=== PATIENT | female | born 1990 | race African-American/Black ===

== ENCOUNTER 2016-05-25 13:44 | Emergency (ER) | payer SELFPAY ==
--- NOTE | 2016-05-25 14:35 | EDM.PDOC ---
ED HPI LOWER BACK PAIN/INJURY - General Chief Complaint: Back Pain or Injury Stated Complaint: LOW BACK PAIN Time Seen by Provider: 05/25/16 13:47 Source of Information: Reports: Patient History Limitations: Reports: No limitations - History of Present Illness INITIAL COMMENTS - FREE TEXT/NARRATIVE: History of present illness: [35-year-old female presenting with chronic back pain with exacerbation indicates that OB instructed her to come to ED for evaluation and/or treatment. Patient is in fact 8 weeks . It was discussed with patient the risks of doing an x-ray will as opposed to any benefit for a chronic condition far out weighed the desire to do so. Also indicated to patient that supportive care during this time would most likely be our best option. ] Review of systems: As per history of present illness and below otherwise all systems reviewed and negative. Past medical history: As per history of present illness and as reviewed below otherwise noncontributory. Surgical history: As per history of present illness and as reviewed below otherwise noncontributory. Social history: No reported history of drug or alcohol abuse. Family history: As per history of present illness and as reviewed below otherwise noncontributory. Physical exam: HEENT: Atraumatic, normocephalic, pupils reactive, negative for conjunctival pallor or scleral icterus, mucous membranes moist, throat clear, neck supple, nontender, trachea midline. Lungs: Clear to auscultation, breath sounds equal bilaterally, chest nontender. Heart: S1S2, regular, negative for clicks, rubs, or JVD. Abdomen: Soft, nondistended, nontender. Negative for masses or hepatosplenomegaly. Negative for costovertebral tenderness. Pelvis: Stable nontender. Genitourinary: Deferred. Rectal: Deferred. Extremities: Atraumatic, negative for cords or calf pain. Neurovascular unremarkable. Neuro: Awake, alert, oriented. Cranial nerves II through XII unremarkable. Cerebellum unremarkable. Motor and sensory unremarkable throughout. Exam nonfocal. Global stiffness and verbalized pain with no significant clinical findings. Secondary to early first trimester decision was made to insert patient to take Tylenol rest decompressed back, ice alternating with heat as comfort allows no more than 20 minutes at a time. Followup with primary care provider for potential physical therapy Diagnostics: [] Therapeutics: [] Impression: [ back pain] Plan: [Care such as Tylenol and alternate ice and heat] Definitive disposition and diagnosis as appropriate pending reevaluation and review of above. - Related Data Allergies/ADRs: Allergies Allergy/AdvReac Type Severity Reaction Status Date / Time No Known Allergies Allergy Verified 05/25/16 13:56 Home Meds: Home Meds . [No Known Home Meds] 05/25/16 [History] Past Medical History - Past Health History Medical/Surgical History: Denies Medical/Surgical History Musculoskeletal History: Reports: Back pain, chronic - Infectious Disease History Infectious Disease History: Reports: Chicken pox Social & Family History - Family History Family Medical History: Noncontributory - Tobacco Use Smoking Status *Q: Never Smoker - Recreational Drug Use Recreational Drug Use: No ED ROS GENERAL - Review of Systems Review Of Systems: See Below (See history of present illness) ED EXAM,LOWER BACK PAIN/INJURY - Physical Exam Exam: See Below (The history of present illness) Course - Vital Signs Last Recorded V/S: Last Vital Signs Temp 36.4 C 05/25/16 13:53 Pulse 101 H 05/25/16 13:53 Resp 18 05/25/16 13:53 BP 131/72 05/25/16 13:53 Pulse Ox 100 05/25/16 13:53 Departure - Departure Time of Disposition: 14:50 Disposition: Home, Self-Care 01 Condition: good Clinical Impression: Chronic back pain greater than 3 months duration Instructions: Back Pain, Adult, [id number], Muscle Strain, [id number] Forms: ED Department Discharge Additional Instructions: The following information is given to patients seen in the emergency department who are being discharged to home. This information is to outline your options for follow-up care. We provide all patients seen in our emergency department with a follow-up referral. The need for follow-up, as well as the timing and circumstances, are variable depending upon the specifics of your emergency department visit. If you don't have a primary care physician on staff, we will provide you with a referral. We always advise you to contact your personal physician following an emergency department visit to inform them of the circumstance of the visit and for follow-up with them and/or the need for any referrals to a consulting specialist. The emergency department will also refer you to a specialist when appropriate. This referral assures that you have the opportunity for follow-up care with a specialist. All of these measure are taken in an effort to provide you with optimal care, which includes your follow-up. Under all circumstances we always encourage you to contact your private physician who remains a resource for coordinating your care. When calling for follow-up care, please make the office aware that this follow-up is from your recent emergency room visit. If for any reason you are refused follow-up, please contact the [facility] Emergency Department at and asked to speak to the emergency department charge nurse. Unfortunately secondary to your early the only medication really say for urine the baby would be Tylenol please take that cautiously as well as gently stretching her back and alternating ice and heat be also important for you to followup with her primary care provider to access a referrals for physical therapy which could benefit you in many ways with your chronic back pain as well as to support you during the which often causes new onset back pain. Medication costs as late as discussed Followup with PCP in one to 2 days Return to ED as needed as discussed [facility] [address] [place] [phone]
[2016-05-25 15:04] VITALS: BP 118/67
== END 2016-05-25 15:03 | disposition home or self-care (01) ==
LOC: MW.ED 13:44
DX: O99.89 Other specified diseases and conditions complicating pregnancy, childbirth and the puerperium (principal); M54.5 Low back pain; G89.29 Other chronic pain; Z3A.08 8 weeks gestation of pregnancy
CPT/HCPCS: 99282

== ENCOUNTER 2016-05-29 16:59 | Emergency (ER) | payer SELFPAY ==
--- NOTE | 2016-05-29 17:27 | EDM.PDOC ---
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 Patient indicates she should be 5-6 weeks and the abdominal cramping had started later today and now she is having vaginal bleeding and is concerned she is having a miscarriage and would like to be evaluated for same] Review of systems: As per history of present illness and below otherwise all systems reviewed and negative. Past medical history: As per history of present illness and as reviewed below otherwise noncontributory. Surgical history: As per history of present illness and as reviewed below otherwise noncontributory. Social history: No reported history of drug or alcohol abuse. Family history: As per history of present illness and as reviewed below otherwise noncontributory. Physical exam: HEENT: Atraumatic, normocephalic, pupils reactive, negative for conjunctival pallor or scleral icterus, mucous membranes moist, throat clear, neck supple, nontender, trachea midline. Lungs: Clear to auscultation, breath sounds equal bilaterally, chest nontender. Heart: S1S2, regular, negative for clicks, rubs, or JVD. Abdomen: Soft, nondistended, nontender. Negative for masses or hepatosplenomegaly. Negative for costovertebral tenderness. Pelvis: Stable nontender. Genitourinary: Deferred. Rectal: Deferred. Extremities: Atraumatic, negative for cords or calf pain. Neurovascular unremarkable. Neuro: Awake, alert, oriented. Cranial nerves II through XII unremarkable. Cerebellum unremarkable. Motor and sensory unremarkable throughout. Exam nonfocal. Diagnostics: [First trimester vaginal bleeding workup] Therapeutics: [IV fluids] Impression: [Threatened or misscarriage] Plan: [Followup with PCP for serial hCG levels] Definitive disposition and diagnosis as appropriate pending reevaluation and review of above. - Related Data Allergies/ADRs: Allergies Allergy/AdvReac Type Severity Reaction Status Date / Time No Known Allergies Allergy Verified 05/25/16 13:56 Home Meds: Home Meds . [No Known Home Meds] 05/25/16 [History] Past Medical History - Past Health History Medical/Surgical History: Denies Medical/Surgical History Musculoskeletal History: Reports: Back pain, chronic - Infectious Disease History Infectious Disease History: Reports: Chicken pox Social & Family History - Family History Family Medical History: Noncontributory - Tobacco Use Smoking Status *Q: Never Smoker - Recreational Drug Use Recreational Drug Use: No ED ROS GENERAL - Review of Systems Review Of Systems: See Below (The history of present illness) ED EXAM - Physical Exam Exam: See Below (History of present illness) Course - Vital Signs Last Recorded V/S: Last Vital Signs Temp 37.4 C 05/29/16 17:20 Pulse 104 H 05/29/16 17:20 Resp 18 05/29/16 17:20 BP 127/77 05/29/16 17:20 Pulse Ox 99 05/29/16 17:20 - Orders/Labs/Meds Orders: Active Orders 24 hr Category Date Time Status OB 1st Tri Sgl 1st Gest [US] Stat Exams 05/29/16 17:18 Taken CULTURE URINE [] Stat Lab 05/29/16 18:55 Received Labs: Laboratory Tests 05/29/16 05/29/16 05/29/16 Range/Units 17:37 17:37 17:37 WBC 6.00 (4.0-11.0) K/uL RBC 4.99 (4.30-5.90) M/uL Hgb 12.9 (12.0-16.0) g/dL Hct 37.9 (36.0-46.0) % MCV 76.0 L (80.0-98.0) fL MCH 25.9 L (27.0-32.0) pg MCHC 34.0 (31.0-37.0) g/dL RDW Std Deviation 38.3 (28.0-62.0) fl RDW Coeff of Raissa 14 (11.0-15.0) % Plt Count 239 (150-400) K/uL MPV 10.30 (7.40-12.00) fL Neut % (Auto) 52.6 (48.0-80.0) % Lymph % (Auto) 37.8 (16.0-40.0) % Webb % (Auto) 5.5 (0.0-15.0) % Eos % (Auto) 3.8 (0.0-7.0) % Baso % (Auto) 0.3 (0.0-1.5) % Neut # (Auto) 3.2 (1.4-5.7) K/uL Lymph # (Auto) 2.3 (0.6-2.4) K/uL Webb # (Auto) 0.3 (0.0-0.8) K/uL Eos # (Auto) 0.2 (0.0-0.7) K/uL Baso # (Auto) 0.0 (0.0-0.1) K/uL Nucleated RBC % 0.0 /100WBC Nucleated RBCs # 0 K/uL HCG, Quant 1542.9 mIU/mL Urine Color Urine Appearance Urine pH (5.0-8.0) Ur Specific [place] (1.001-1.035) Urine Protein (NEGATIVE) mg/dL Urine Glucose (UA) (NEGATIVE) mg/dL Urine Ketones (NEGATIVE) mg/dL Urine Occult Blood (NEGATIVE) Urine Nitrite (NEGATIVE) Urine Bilirubin (NEGATIVE) Urine Urobilinogen (<2.0) EU/dL Ur Leukocyte Esterase (NEGATIVE) Urine RBC (0-2/HPF) Urine WBC (0-5/HPF) Ur Epithelial Cells (NONE-FEW) Urine Bacteria (NEGATIVE) Blood Type O POSITIVE 05/29/16 Range/Units 18:55 WBC (4.0-11.0) K/uL RBC (4.30-5.90) M/uL Hgb (12.0-16.0) g/dL Hct (36.0-46.0) % MCV (80.0-98.0) fL MCH (27.0-32.0) pg MCHC (31.0-37.0) g/dL RDW Std Deviation (28.0-62.0) fl RDW Coeff of Raissa (11.0-15.0) % Plt Count (150-400) K/uL MPV (7.40-12.00) fL Neut % (Auto) (48.0-80.0) % Lymph % (Auto) (16.0-40.0) % Webb % (Auto) (0.0-15.0) % Eos % (Auto) (0.0-7.0) % Baso % (Auto) (0.0-1.5) % Neut # (Auto) (1.4-5.7) K/uL Lymph # (Auto) (0.6-2.4) K/uL Webb # (Auto) (0.0-0.8) K/uL Eos # (Auto) (0.0-0.7) K/uL Baso # (Auto) (0.0-0.1) K/uL Nucleated RBC % /100WBC Nucleated RBCs # K/uL HCG, Quant mIU/mL Urine Color YELLOW Urine Appearance HAZY Urine pH 5.5 (5.0-8.0) Ur Specific [place] 1.025 (1.001-1.035) Urine Protein NEGATIVE (NEGATIVE) mg/dL Urine Glucose (UA) NEGATIVE (NEGATIVE) mg/dL Urine Ketones NEGATIVE (NEGATIVE) mg/dL Urine Occult Blood LARGE H (NEGATIVE) Urine Nitrite NEGATIVE (NEGATIVE) Urine Bilirubin NEGATIVE (NEGATIVE) Urine Urobilinogen 0.2 (<2.0) EU/dL Ur Leukocyte Esterase NEGATIVE (NEGATIVE) Urine RBC 20-30 (0-2/HPF) Urine WBC 0-1 (0-5/HPF) Ur Epithelial Cells RARE (NONE-FEW) Urine Bacteria RARE (NEGATIVE) Blood Type Departure - Departure Time of Disposition: 20:57 Disposition: Home, Self-Care 01 Condition: good Clinical Impression: Threatened Forms: ED Department Discharge Additional Instructions: The following information is given to patients seen in the emergency department who are being discharged to home. This information is to outline your options for follow-up care. We provide all patients seen in our emergency department with a follow-up referral. The need for follow-up, as well as the timing and circumstances, are variable depending upon the specifics of your emergency department visit. If you don't have a primary care physician on staff, we will provide you with a referral. We always advise you to contact your personal physician following an emergency department visit to inform them of the circumstance of the visit and for follow-up with them and/or the need for any referrals to a consulting specialist. The emergency department will also refer you to a specialist when appropriate. This referral assures that you have the opportunity for follow-up care with a specialist. All of these measure are taken in an effort to provide you with optimal care, which includes your follow-up. Under all circumstances we always encourage you to contact your private physician who remains a resource for coordinating your care. When calling for follow-up care, please make the office aware that this follow-up is from your recent emergency room visit. If for any reason you are refused follow-up, please contact the [facility] Emergency Department at and asked to speak to the emergency department charge nurse. Followup with PCP 1-2 days Return to ED as needed as discussed - My Orders Last 24 Hours: My Active Orders 05/29/16 17:18 OB 1st Tri Sgl 1st Gest [US] Stat 05/29/16 18:55 CULTURE URINE [RM] Stat - Assessment/Plan Last 24 Hours: My Active Orders 05/29/16 17:18 OB 1st Tri Sgl 1st Gest [US] Stat 05/29/16 18:55 CULTURE URINE [RM] Stat
[2016-05-29 21:28] VITALS: BP 112/55
--- NOTE | 2016-05-30 11:14 | US ---
EXAM DATE: 05/29/16 PATIENT'S AGE: 25 Patient: MARIELA SEGOVIA Facility: [place], [place] Site . Site : 1990 Study: US OB Pelvis [id number]/17/2017 8:26:25 PM Ordering Physician: Doctor Tam Final Report: INDICATION: Early . Bleeding. OBSTETRICAL ULTRASOUND Technique: Transabdominal and transvaginal scanning of the pelvis was performed. Findings: No intrauterine gestational sac is visualized. The endometrium is thickened and measures up to 18 millimeters in thickness. The ovaries appear within normal limits bilaterally. There is a 1.9 x 1.1 x 1.4 centimeter simple cyst within the left ovary which may represent the corpus luteum. No adnexal masses are demonstrated. No significant free pelvic fluid is identified. IMPRESSION: No intrauterine gestational sac identified. Thickening of the endometrium is noted. Serial quantitative HCG measurements are recommended, and consider repeat ultrasound in 1 week if clinically indicated. ISIS ADAME MD [employer] Dictated by Vu Adame MD @ 05/29/2016 8:51:07 PM Dictated by: Vu Adame MD @ 05/29/2016 20:51:46 (Electronic Signature) Report Signed by Proxy and Original Signed Document filed in the Medical Record. MTDD
== END 2016-05-29 21:30 | disposition home or self-care (01) ==
LOC: MW.ED 16:59
DX: O20.0 Threatened abortion (principal)
CPT/HCPCS: 36415; 76801; 76801-26; 81001; 84702; 85025; 86900; 86901; 87086; 99283; 99284-25

== ENCOUNTER → 2016-05-30 | Outpatient (CLI) | payer SELFPAY | LOC: MW.CHOBGYN 14:41 | PROVIDERS: ATTEND Obstetrics & Gynecology | DX: O20.0 Threatened abortion (principal) | CPT/HCPCS: 36415; 84702 ==

== ENCOUNTER 2016-06-06 11:19 | Emergency (ER) | payer SELFPAY ==
[2016-06-06] MEDS ORDERED: Ketorolac 60 MG/2 ML SDV IM ONE (11:54)
--- NOTE | 2016-06-06 11:54 | EDM.PDOC ---
ED HPI LOWER BACK PAIN/INJURY - General Stated Complaint: BACK PAIN Time Seen by Provider: 06/06/16 11:23 Source of Information: Reports: Patient History Limitations: Reports: No limitations - History of Present Illness INITIAL COMMENTS - FREE TEXT/NARRATIVE: Presents to the ER reporting a one year history of low back pain with some tingling and numbness radiating down to her left leg. The patient states that she is wondering about some referrals for her back pain. She has not been seen in primary care. She said that she went through a battery of tests when she lived in [facility]. - Related Data Allergies/ADRs: Allergies Allergy/AdvReac Type Severity Reaction Status Date / Time No Known Allergies Allergy Verified 06/06/16 11:39 Home Meds: Home Meds . [No Known Home Meds] 05/25/16 [History] Past Medical History - Past Health History Medical/Surgical History: Denies Medical/Surgical History Musculoskeletal History: Reports: Back pain, chronic - Infectious Disease History Infectious Disease History: Reports: Chicken pox - Past Surgical History HEENT Surgical History: Reports: [id number] Social & Family History - Family History Family Medical History: Noncontributory - Tobacco Use Smoking Status *Q: Never Smoker Second Hand Smoke Exposure: No - Recreational Drug Use Recreational Drug Use: No ED ROS GENERAL - Review of Systems Review Of Systems: See Below : Reports: other (no bowel or bladder incontinence) Neurological: Reports: Other (no saddle anesthesia) ED EXAM,LOWER BACK PAIN/INJURY - Physical Exam Exam: See Below Exam Limited By: No limitations General Appearance: alert, no apparent distress Ears: normal external exam Nose: normal inspection Throat/Mouth: Normal inspection Head: atraumatic, normocephalic Neck: normal inspection Respiratory/Chest: no respiratory distress, lungs clear, normal breath sounds Cardiovascular: normal peripheral pulses, regular rate, rhythm, no murmur GI/Abdominal: soft (Female) Exam: Normal external exam Rectal (Female) Exam: Normal Exam Back Exam: other (Left SI joint tenderness, mild tenderness over the lumbar spine) Extremities: normal inspection Neurological: alert, normal reflexes, no motor/sensory deficits, oriented x 3 Psychiatric: normal affect, normal mood Skin Exam: Warm, Dry, Intact, Normal color, No rash Lymphatic: no adenopathy Course - Vital Signs Last Recorded V/S: Last Vital Signs Temp 37.0 C 06/06/16 11:37 Pulse 94 06/06/16 11:37 Resp 16 06/06/16 11:37 BP 120/86 06/06/16 11:37 Pulse Ox 100 06/06/16 11:37 Departure - Departure Time of Disposition: 11:52 Disposition: Home, Self-Care 01 Condition: good Clinical Impression: Chronic back pain greater than 3 months duration Referrals: PCP,None [Primary Care Provider] - [facility] [Outside] [facility] [Outside] Additional Instructions: 1. You have had your low back pain for over a year. Please make an appointment in primary care for what for a full evaluation and referrals if needed. 2. Tylenol, ibuprofen or Aleve may be used as directed.
[2016-06-06 12:28] VITALS: BP 119/61
== END 2016-06-06 12:29 | disposition home or self-care (01) ==
LOC: MW.ED 11:19
DX: M54.5 Low back pain (principal); G89.29 Other chronic pain
CPT/HCPCS: 96372; 99283; J1885

== ENCOUNTER → 2016-06-09 | Outpatient (CLI) | payer SELFPAY | LOC: MW.CHOBGYN 08:45 | PROVIDERS: ATTEND Nurse Practitioner Women's Health | DX: K59.00 Constipation, unspecified (principal); R63.5 Abnormal weight gain | CPT/HCPCS: 36415; 84443 ==

== ENCOUNTER 2018-05-22 00:09 | Emergency (ER) | payer SELFPAY ==
[2018-05-22] MEDS ORDERED: Ondansetron 4 MG Tab.DIS PO ONE (00:41)
[2018-05-22] MEDS ORDERED: Ketorolac 60 MG/2 ML SDV IM ONE (00:41)
--- NOTE | 2018-05-22 00:45 | EDM.PDOC ---
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 The patient says she has not had discomfort with sex since the IUD was placed and has had some late. Last month with that but otherwise is not menstruating and presents with these events that occurred this evening via ambulance. She says that the pain started immediately after the end of intercourse and it was sharp and severe and it did not radiate to her flank. She has no urinary complaints no vaginal bleeding or vaginal discharge and she was concerned about her IUD. She has never had an ovarian cyst before and no other instrumentation. She has had an episode of nausea and vomiting prior to coming here and now feels somewhat nauseated. For having sexual intercourse she was in her usual state of good health with no systemic complaints. Review of systems: As per history of present illness and below otherwise all systems reviewed and negative. Past medical history: As per history of present illness and as reviewed below otherwise noncontributory. Surgical history: As per history of present illness and as reviewed below otherwise noncontributory. Social history: No reported history of drug or alcohol abuse. Family history: As per history of present illness and as reviewed below otherwise noncontributory. Physical exam: General: Well-developed well-nourished female who is nontoxic and very overweight. Vital signs are noted by me HEENT: Atraumatic, normocephalic, negative for conjunctival pallor or scleral icterus, mucous membranes moist, throat clear, neck supple, nontender, trachea midline. Lungs: Clear to auscultation, breath sounds equal bilaterally, chest nontender. Heart: S1S2, regular rate and rhythm no overt murmurs Abdomen: Soft, nondistended, bowel sounds are hypoactive. There is some mild tenderness in the suprapubic area extending to the left lower quadrant which is more moderate in this area but there is no rebound or guarding. Negative for masses or hepatosplenomegaly. Pelvis: Stable nontender. Genitourinary: Deferred. Rectal: Deferred. Extremities: Atraumatic, full range of motion without defects or deficits Neurovascular unremarkable. Neuro: Awake, alert, oriented. Cranial nerves II through XII unremarkable. Cerebellum unremarkable. Motor and sensory unremarkable throughout. Exam nonfocal. Diagnostics: CBC CMP UA UCG pelvic ultrasound Therapeutics: Toradol Zofran Patient is feeling better in the ED and she is aware of testing results including the right hemorrhagic cyst in the right ovary which likely leaked some fluid causing her sudden change in pain. She is a patient of [facility] in the past and they've advised her to call and schedule a follow -up appointment. I advised [id number] Naprosyn/Aleve or ibuprofen for pain management Impression: Right hemorrhagic ovarian cyst with partial rupture stable Definitive disposition and diagnosis as appropriate pending reevaluation and review of above. 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 ED EXAM, GENERAL - Physical Exam Exam: See Below (See dictation) Course - Vital Signs Last Recorded V/S: Last Vital Signs Temp 36.7 C 05/22/18 00:10 Pulse 88 05/22/18 00:10 Resp 16 05/22/18 00:10 BP 129/89 05/22/18 00:10 Pulse Ox 97 05/22/18 00:10 - Orders/Labs/Meds Labs: Laboratory Tests 05/22/18 05/22/18 05/22/18 Range/Units 00:50 00:50 00:55 WBC 7.12 (4.0-11.0) K/uL RBC 4.94 (4.30-5.90) M/uL Hgb 12.8 (12.0-16.0) g/dL Hct 36.7 (36.0-46.0) % MCV 74.3 L (80.0-98.0) fL MCH 25.9 L (27.0-32.0) pg MCHC 34.9 (31.0-37.0) g/dL RDW Std Deviation 34.6 (28.0-62.0) fl RDW Coeff of Raissa 13 (11.0-15.0) % Plt Count 249 (150-400) K/uL MPV 11.20 (7.40-12.00) fL Neut % (Auto) 58.9 (48.0-80.0) % Lymph % (Auto) 30.9 (16.0-40.0) % [place] % (Auto) 7.2 (0.0-15.0) % Eos % (Auto) 2.7 (0.0-7.0) % Baso % (Auto) 0.3 (0.0-1.5) % Neut # (Auto) 4.2 (1.4-5.7) K/uL Lymph # (Auto) 2.2 (0.6-2.4) K/uL [place] # (Auto) 0.5 (0.0-0.8) K/uL Eos # (Auto) 0.2 (0.0-0.7) K/uL Baso # (Auto) 0.0 (0.0-0.1) K/uL Sodium (136-145) mmol/L Potassium (3.5-5.1) mmol/L Chloride (98-107) mmol/L Carbon Dioxide (21.0-32.0) mmol/L BUN (7.0-18.0) mg/dL Creatinine (0.6-1.0) mg/dL Est Cr Clr Drug Dosing mL/min Estimated GFR (MDRD) ml/min Glucose (74-106) mg/dL Calcium (8.5-10.1) mg/dL Total Bilirubin (0.2-1.0) mg/dL AST (15-37) IU/L ALT (14-63) IU/L Alkaline Phosphatase (46-116) U/L Total Protein (6.4-8.2) g/dL Albumin (3.4-5.0) g/dL Globulin (2.6-4.0) g/dL Albumin/Globulin Ratio (0.9-1.6) Urine Color YELLOW Urine Appearance CLEAR Urine pH 6.0 (5.0-8.0) Ur Specific [place] 1.025 (1.001-1.035) Urine Protein 100 H (NEGATIVE) mg/dL Urine Glucose (UA) NEGATIVE (NEGATIVE) mg/dL Urine Ketones NEGATIVE (NEGATIVE) mg/dL Urine Occult Blood TRACE-INTACT H (NEGATIVE) Urine Nitrite NEGATIVE (NEGATIVE) Urine Bilirubin NEGATIVE (NEGATIVE) Urine Urobilinogen 0.2 (<2.0) EU/dL Ur Leukocyte Esterase NEGATIVE (NEGATIVE) Urine RBC 0-2 (0-2/HPF) Urine WBC 0-1 (0-5/HPF) Ur Epithelial Cells RARE (NONE-FEW) Urine Bacteria RARE (NEGATIVE) Urine HCG, Qual NEGATIVE (NEGATIVE) 05/22/18 Range/Units 00:55 WBC (4.0-11.0) K/uL RBC (4.30-5.90) M/uL Hgb (12.0-16.0) g/dL Hct (36.0-46.0) % MCV (80.0-98.0) fL MCH (27.0-32.0) pg MCHC (31.0-37.0) g/dL RDW Std Deviation (28.0-62.0) fl RDW Coeff of Raissa (11.0-15.0) % Plt Count (150-400) K/uL MPV (7.40-12.00) fL Neut % (Auto) (48.0-80.0) % Lymph % (Auto) (16.0-40.0) % [place] % (Auto) (0.0-15.0) % Eos % (Auto) (0.0-7.0) % Baso % (Auto) (0.0-1.5) % Neut # (Auto) (1.4-5.7) K/uL Lymph # (Auto) (0.6-2.4) K/uL [place] # (Auto) (0.0-0.8) K/uL Eos # (Auto) (0.0-0.7) K/uL Baso # (Auto) (0.0-0.1) K/uL Sodium 140 (136-145) mmol/L Potassium 3.8 (3.5-5.1) mmol/L Chloride 102 (98-107) mmol/L Carbon Dioxide 27.9 (21.0-32.0) mmol/L BUN 8 (7.0-18.0) mg/dL Creatinine 0.8 (0.6-1.0) mg/dL Est Cr Clr Drug Dosing 97.13 mL/min Estimated GFR (MDRD) > 60.0 ml/min Glucose 136 H (74-106) mg/dL Calcium 9.2 (8.5-10.1) mg/dL Total Bilirubin 0.5 (0.2-1.0) mg/dL AST 12 L (15-37) IU/L ALT 14 (14-63) IU/L Alkaline Phosphatase 56 (46-116) U/L Total Protein 8.2 (6.4-8.2) g/dL Albumin 3.9 (3.4-5.0) g/dL Globulin 4.3 H (2.6-4.0) g/dL Albumin/Globulin Ratio 0.9 (0.9-1.6) Urine Color Urine Appearance Urine pH (5.0-8.0) Ur Specific [place] (1.001-1.035) Urine Protein (NEGATIVE) mg/dL Urine Glucose (UA) (NEGATIVE) mg/dL Urine Ketones (NEGATIVE) mg/dL Urine Occult Blood (NEGATIVE) Urine Nitrite (NEGATIVE) Urine Bilirubin (NEGATIVE) Urine Urobilinogen (<2.0) EU/dL Ur Leukocyte Esterase (NEGATIVE) Urine RBC (0-2/HPF) Urine WBC (0-5/HPF) Ur Epithelial Cells (NONE-FEW) Urine Bacteria (NEGATIVE) Urine HCG, Qual (NEGATIVE) Meds: Medications Discontinued Medications Generic Name Dose Route Start Last Admin Trade Name Freq PRN Reason Stop Dose Admin Ketorolac Tromethamine 60 mg 05/22/18 00:41 05/22/18 00:51 Toradol IM 05/22/18 00:42 60 mg ONETIME ONE Administration Ondansetron HCl 4 mg 05/22/18 00:41 05/22/18 00:52 Zofran Odt PO 05/22/18 00:42 4 mg ONETIME ONE Administration Departure - Departure Time of Disposition: 02:17 Disposition: Home, Self-Care 01 Condition: Good Clinical Impression: Hemorrhagic cyst of right ovary - Discharge Information Forms: ED Department Discharge Additional Instructions: The following information is given to patients seen in the emergency department who are being discharged to home. This information is to outline your options for follow-up care. We provide all patients seen in our emergency department with a follow-up referral. The need for follow-up, as well as the timing and circumstances, are variable depending upon the specifics of your emergency department visit. If you don't have a primary care physician on staff, we will provide you with a referral. We always advise you to contact your personal physician following an emergency department visit to inform them of the circumstance of the visit and for follow-up with them and/or the need for any referrals to a consulting specialist. The emergency department will also refer you to a specialist when appropriate. This referral assures that you have the opportunity for followup care with a specialist. All of these measure are taken in an effort to provide you with optimal care, which includes your followup. Under all circumstances we always encourage you to contact your private physician who remains a resource for coordinating your care. When calling for followup care, please make the office aware that this follow-up is from your recent emergency room visit. If for any reason you are refused follow-up, please contact the [facility] emergency department at and ask to speak to the emergency department charge nurse. [facility] [address] [place] [id number] Push hydration and be conscious of this cyst as more fluid can leak from it causing more pain during sexual intercourse. Use [id number] Aleve or ibuprofen for pain management. Call the clinic in the morning and schedule a follow-up appointment making sure to mention that your seen here in the emergency department and need a follow-up appointment. Return to ER as needed and as discussed
[2018-05-22 01:17] LABS: CHLORIDE,CL 102 mmol/L (98-107); SODIUM,NA 140 mmol/L (136-145)
--- NOTE | 2018-05-22 02:13 | US ---
INDICATION: Left pelvic pain TECHNIQUE: Multiple transvaginal sonographic images of the pelvis. COMPARISON: 07/28/2016 FINDINGS: Uterus: 9.1 x 4.0 x 5.5 cm. Normal echotexture of the myometrium. No masses. Endometrium: 5 mm in thickness. An IUD within the endometrium. Right ovary: 5.1 x 3.3 x 3.8 cm. A 2.2 x 2.1 x 1.5 cm complex right ovarian lesion. Normal arterial and venous blood flow. Left ovary: 4.2 x 1.7 x 3.3 cm. No ovarian or adnexal masses. Normal arterial and venous blood flow. Cul-de-sac: Small free fluid which appears complex. IMPRESSION: A 2.2 cm complex right ovarian lesion, probably a hemorrhagic cyst. Small, apparently complex, free fluid. Correlate with a 6 week followup examination. An IUD within the endometrium. Dictated by Collins Collier MD @ 05/22/2018 2:12:17 AM Dictated by: Collins Collier MD @ 05/22/2018 02:12:22 (Electronically Signed)
[2018-05-22 02:49] VITALS: BP 108/70
== END 2018-05-22 02:25 | disposition home or self-care (01) ==
LOC: MW.ED 00:09
DX: N83.201 Unspecified ovarian cyst, right side (principal)
CPT/HCPCS: 36415; 76856; 80053; 81001; 81025; 85025; 96372; 99284; A9270; J1885